=== PATIENT | female | born 1960 | race Two or more races ===

== ENCOUNTER 2019-07-04 12:36 | Outpatient (CLI) | payer MEDICAID ==
[~2019-07-04] VITALS: Ht 157.5 cm; Wt 73.9 kg
[2019-07-04 14:19] VITALS: BP 140/74
[2019-07-04] MEDS ORDERED: AMLODIPINE BESYL5 MG ORAL (14:19)
[2019-07-04] MEDS ORDERED: OMEPRAZOLE40 M1 ORAL (14:19)
[2019-07-04] MEDS ORDERED: METRONIDAZOLE500 MG ORAL (14:19)
--- NOTE | 2019-07-04 16:45 | Consultation ---
DATE OF CONSULTATION: 07/04/2019 GASTROENTEROLOGY CONSULTATION CONSULTING PHYSICIAN: Janes Whitlock M.D. CHIEF COMPLAINT: Referral for screening colonoscopy. PAST MEDICAL HISTORY: 1. Hypertension. 2. GERD. PAST SURGICAL HISTORY: None. MEDICATIONS: Amlodipine and omeprazole. FAMILY HISTORY: No family history of GI malignancies. SOCIAL HISTORY: The patient denies any tobacco, alcohol, or drug abuse. REVIEW OF SYSTEMS: A 10-point review of systems was performed and pertinent positives in HPI. PHYSICAL EXAMINATION: VITAL SIGNS: Temperature 97.5, pulse 78, respirations 20, and blood pressure 140/74. HEENT: Normocephalic and atraumatic. Sclerae anicteric. NECK: Supple. No evidence of obvious lymphadenopathy. CARDIOVASCULAR: Regular rate and rhythm. Plus S1 and S2. LUNGS: Clear to auscultation. ABDOMEN: Positive bowel sounds. Soft, nontender. No rebound. No guarding. No peritoneal sign. EXTREMITIES: No cyanosis. No clubbing. No edema. ASSESSMENT AND PLAN: A 58-year-old female who was referred to us for screening colonoscopy. The patient was given instruction for colonoscopy. Risks and benefits of procedure was explained to her. We are waiting for authorization for scheduling. Janes Whitlock M.D. DR: MARGARET JOB#: [id number] CC:
== END 2019-07-04 15:07 | disposition home or self-care (01) ==
LOC: PAN 12:36
DX: K21.9 Gastro-esophageal reflux disease without esophagitis (principal); I10 Essential (primary) hypertension; Z79.899 Other long term (current) drug therapy
CPT/HCPCS: G0463